=== PATIENT | female | born 1935 | race Caucasian/White ===

== ENCOUNTER 2017-02-26 13:00 | Emergency (ER) | payer OTHER ==
[~2017-02-26] VITALS: Ht 167.6 cm; Wt 47.1 kg
[~2017-02-26 13:00] MED LIST: ASPIR 8181 M1 PO; ASPIRIN81 M2 PO; AUGMENTIN875 MG PO; Ambien PO; Aspirin E.C. PO; CELEXA20 MG PO; CITALOPRAM HBR20 MG PO; CLEOCIN300 MG PO; FERROUS SULFAT325 M2 PO; GERI-LANTA LIQ355 ML PO; KEFLEX500 MG PO; Maalox, Mylanta PO; PANTOPRAZOLE SO40 MG PO; PROTONIX40 MG PO; Protonix PO; REMERON30 M2 PO; Remeron PO; SPIRIVA1 INHALATI IH; THERA1 EAC1 PO; THERAGRAN1 TABLET PO; TRAMADOL HCL50 MG PO; TYLENOL REGULA325 MG PO; Theragran PO; Ultram PO; Xanax PO; ZOSTRIX56.6 GM TP; celeXA PO
[2017-02-26 13:13] LABS: BASOPHIL (%) 0.7 % (0-1); BASOPHIL COUNT 0.1 K/uL (0-0.1); EOSINOPHIL (%) 0.9 % (0-5); EOSINOPHIL COUNT 0.1 K/uL (0-0.3); HEMATOCRIT 34.2 % (36.0-46.0); IMMATURE GRANULOCYTE (%) 0.4 % (0.0-0.7); LYMPHOCYTE (%) 18.5 % (15-42); MCH 29.7 PG (29.0-34.0); MCHC 32.2 G/DL (30.0-36.0); MCV 92.4 FL (83-99); MONOCYTE (%) 8.2 % (3-12); MONOCYTE COUNT 0.9 K/uL (0-0.8); NEUTROPHIL (%) 71.3 % (45-76); NEUTROPHIL COUNT 7.6 K/uL (1.8-6.4); PLATELET COUNT 267 K/uL (156-360); RBC DIS.WIDTH-CV 13.7 % (11.8-14.6); RBC DIS.WIDTH-SD 46.8 % (39-53); WHITE BLOOD COUNT 10.6 K/uL (4.1-10.2)
[2017-02-26 13:21] LABS: CHLORIDE 98 mEq/L (99-109); POTASSIUM 4.1 mEq/L (3.7-5.4); SODIUM 133 mEq/L (136-147)
[2017-02-26 13:23] LABS: GLUCOSE 90 mg/dL (70-99)
[2017-02-26 13:24] LABS: PTT 29.6 SEC (25-37)
[2017-02-26 13:26] LABS: SERUM ETHYL ALCOHOL < 10 mg/dL
[2017-02-26 13:27] LABS: CREATININE 0.8 mg/dL (0.6-1.3); GFR ESTIMATE (CALCULATED) > 59 mL/min/
[2017-02-26 13:28] LABS: UREA NITROGEN (BUN) 11 mg/dL (9-23)
[2017-02-26 13:30] LABS: LIPASE 11 U/L (1.0-51.0)
[2017-02-26 13:33] LABS: AMYLASE 765 IU/L (1-118)
[2017-02-26 13:34] LABS: TROP-I INTERPRETATION NEGATIVE; TROPONIN-I < 0.01 ng/mL (0.0-0.30)
[2017-02-26 13:56] LABS: MAGNESIUM 2.1 mg/dL (1.3-2.7)
[2017-02-26 14:01] LABS: ALBUMIN 3.7 g/dL (3.2-4.8)
[2017-02-26 14:03] LABS: TOTAL PROTEIN 7.4 g/dL (6.4-8.3)
[2017-02-26 14:05] LABS: TOTAL BILIRUBIN 0.6 mg/dL (0.0-1.0)
[2017-02-26 14:06] LABS: ALKALINE PHOSPHATASE 67 IU/L (3-129)
[2017-02-26 14:09] LABS: ALT (GPT) 10 IU/L (3-49); AST (GOT) 25 IU/L (2-34); DIRECT BILIRUBIN 0.3 mg/dL (0.0-0.3)
[2017-02-26 15:52] VITALS: BP 130/68
== END 2017-02-26 15:56 | disposition short-term general hospital (02) ==
LOC: EME 13:00
PROVIDERS: Emergency Medicine
DX: I63.213 Cerebral infarction due to unspecified occlusion or stenosis of bilateral vertebral arteries (principal); G81.94 Hemiplegia, unspecified affecting left nondominant side; Z87.11 Personal history of peptic ulcer disease; K21.9 Gastro-esophageal reflux disease without esophagitis; F41.9 Anxiety disorder, unspecified; F32.9 Major depressive disorder, single episode, unspecified; F03.90 Unspecified dementia, unspecified severity, without behavioral disturbance, psychotic disturbance, mood disturbance, and anxiety; Z91.81 History of falling; Z79.82 Long term (current) use of aspirin
CPT/HCPCS: 70450; 70496; 70498; 71045; 80048; 80076; 81003; 82150; 83690; 83735; 84484; 85025; 85610; 85730; 86850; 86870; 86900; 86901; 86905; 86920; 93005; 99281; 99285; G0480